=== PATIENT | male | born 1995 | race Caucasian/White ===

== ENCOUNTER 2024-09-24 18:17 | Emergency (ER) | payer BC | END 2024-09-24 19:32 | disposition home or self-care (01) | LOC: FB.ED 18:17 | DX: L23.9 Allergic contact dermatitis, unspecified cause (principal); M62.838 Other muscle spasm; Z91.030 Bee allergy status | CPT/HCPCS: 99283 ==

== ENCOUNTER 2025-03-26 13:21 | Emergency (ER) | payer BC ==
[2025-03-26 15:35] LABS: GLUCOSE,URINE NORMAL (NORMAL); OCCULT BLOOD,URINE LARGE (NEGATIVE)
[2025-03-26 16:02] LABS: APPEARANCE,URINE CLOUDY (CLEAR); EPITHELIAL CELLS,URINE OCCASIONAL
== END 2025-03-26 16:33 | disposition home or self-care (01) ==
LOC: FB.ED 13:21
DX: N13.2 Hydronephrosis with renal and ureteral calculous obstruction (principal); Z79.899 Other long term (current) drug therapy; Z91.030 Bee allergy status
CPT/HCPCS: 74176; 74176-26; 81001; 99284